=== PATIENT | female | born 1950 | race African-American/Black ===

== ENCOUNTER 2018-08-05 12:15 | Inpatient (IN) | payer MEDICARE, MEDICAID ==
[~2018-08-05] VITALS: Ht 167.6 cm; Wt 113.4 kg
[~2018-08-05 12:15] MED LIST: ASPIRIN; PAROXETINE; RISPERIDONE
[2018-08-05] MEDS ORDERED: LEVOFLOXACIN 500MG TABLET PO ONE (12:45)
[2018-08-05] MEDS ORDERED: IBUPROFEN 800MG TABLET PO ONE (12:45)
[2018-08-05] MEDS ORDERED: ASPIRIN 81MG TABLET PO ONE (13:30)
[2018-08-05 13:41] LABS: BASOPHILS % 0.5 % (0.0-2.0); EOSINOPHILS % 2.9 % (0.0-5.0); HEMATOCRIT. 39.8 % (36.0-48.0); HEMOGLOBIN. 13.3 g/dL (12.0-16.0); LYMPHOCYTES % 44.1 % (20.0-50.0); MEAN CORPUSCULAR HEMOGLOBIN 32.1 pg (28.0-32.0); MEAN PLATELET VOLUME 10.6 fl (7.4-10.4); MONOCYTES % 6.4 % (2.0-8.0); NEUTROPHILS % 46.1 % (40.0-76.0); PLATELET 211 x1000/uL (130-400); RED BLOOD CELL COUNT 4.15 mill/uL (4.2-5.4); RED CELL DISTRIBUTION WIDTH 14.3 % (11.6-14.6)
[2018-08-05 13:52] LABS: CHLORIDE 109 mEq/L (98-107)
[2018-08-05 13:55] LABS: PARTIAL THROMBOPLASTIN TIME 27.5 sec (23.4-31.0); PROTHROMBIN TIME 10.3 sec (9.1-11.1)
[2018-08-05 14:26] LABS: CLARITY URINE TURBID (CLEAR); COLOR URINE RED (YELLOW); KETONES URINE 1+ (NEGATIVE); LEUKOCYTE ESTERASE URINE 1+ (NEGATIVE); NITRITE URINE NEGATIVE (NEGATIVE); OCCULT BLOOD URINE 3+ (NEGATIVE); PROTEIN URINE 1+ (NEGATIVE); SPECIFIC GRAVITY URINE 1.015 (1.005-1.030)
[2018-08-05 14:39] LABS: *AMPHETAMINES SCREEN URINE NEGATIVE (NEGATIVE); *BARBITURATES SCREEN URINE NEGATIVE (NEGATIVE); *BENZODIAZEPINES SCREEN URINE NEGATIVE (NEGATIVE); *COCAINE SCREEN URINE NEGATIVE (NEGATIVE)
[2018-08-05 14:41] LABS: CANNABINOID URINE SCREEN NEGATIVE (NEGATIVE); METHADONE URINE SCREEN NEGATIVE (NEGATIVE); OPIATES URINE SCREEN NEGATIVE (NEGATIVE); PHENCYCLIDINE URINE SCREEN NEGATIVE (NEGATIVE)
[2018-08-05 16:00] VITALS: BP 121/61
[2018-08-05 17:37] VITALS: BP 110/62
[2018-08-05 18:00] VITALS: BP 121/61
[2018-08-05] MEDS ORDERED: CARV6.2548 MT (18:42)
[2018-08-05] MEDS ORDERED: ASPI-1158 MT (18:42)
[2018-08-05] MEDS ORDERED: LOSA50TA20 MT (18:42)
[2018-08-05] MEDS ORDERED: NITR0.4T SL (18:42)
[2018-08-05] MEDS ORDERED: PANT40TA4 MT (18:42)
[2018-08-05] MEDS ORDERED: ATOR40TA70 MT (18:42)
[2018-08-05] MEDS ORDERED: CLOP75TA16 MT (18:42)
[2018-08-05] MEDS ORDERED: NITROGLYCERIN 0.4MG TABLET SL SL PRN (19:45)
[2018-08-05 20:00] VITALS: BP 122/70
[2018-08-05] MEDS ORDERED: MORPHINE SULFATE 4 MG/ML CPJ (NOT FOR IM USE) IV PRN (20:18)
[2018-08-05] MEDS: CARVEDILOL 3.125 MG TABLET PO SCH (22:04)
[2018-08-05] MEDS: ATORVASTATIN CALCIUM 40MG TABLET PO SCH (22:05)
[2018-08-05] MEDS: CEFTRIAXONE 1 G PREMIX 50 ML IV SCH (22:05)
[2018-08-06] VITALS: BP 126/71
[2018-08-06] MEDS ORDERED: PAROXETINE HCL 10MG TABLET PO SCH ×2 (01:30→21:00)
[2018-08-06] MEDS ORDERED: RISPERIDONE 0.5MG TABLET PO SCH ×2 (01:30→21:00)
[2018-08-06 04:00] VITALS: BP 111/51
[2018-08-06 06:56] LABS: BASOPHILS % 0.5 % (0.0-2.0); EOSINOPHILS % 3.4 % (0.0-5.0); HEMATOCRIT. 39.1 % (36.0-48.0); HEMOGLOBIN. 12.9 g/dL (12.0-16.0); LYMPHOCYTES % 43.6 % (20.0-50.0); MEAN CORPUSCULAR HEMOGLOBIN 31.8 pg (28.0-32.0); MEAN PLATELET VOLUME 10.8 fl (7.4-10.4); MONOCYTES % 7.7 % (2.0-8.0); NEUTROPHILS % 44.8 % (40.0-76.0); PLATELET 193 x1000/uL (130-400); RED BLOOD CELL COUNT 4.07 mill/uL (4.2-5.4)
[2018-08-06] MEDS: PANTOPRAZOLE 40MG DR TABLET PO SCH (07:14)
[2018-08-06 07:16] LABS: CHLORIDE 109 mEq/L (98-107)
[2018-08-06 08:00] VITALS: BP 126/87
[2018-08-06] MEDS ORDERED: CLOPIDOGREL 75MG TABLET PO SCH (09:00)
[2018-08-06] MEDS: LOSARTAN POTASSIUM 50 MG TABLET PO SCH (09:08)
[2018-08-06] MEDS: ASPIRIN 81MG TABLET PO SCH (09:08)
[2018-08-06] MEDS: CARVEDILOL 3.125 MG TABLET PO SCH ×2 (09:09→21:57)
[2018-08-06 12:00] VITALS: BP 145/70
[2018-08-06 16:00] VITALS: BP 124/78
[2018-08-06 20:00] VITALS: BP 116/59
[2018-08-06] MEDS: ATORVASTATIN CALCIUM 40MG TABLET PO SCH (21:56)
[2018-08-06] MEDS: CEFTRIAXONE 1 G PREMIX 50 ML IV SCH (21:57)
[2018-08-07] VITALS: BP 155/71
[2018-08-07 04:00] VITALS: BP 116/48
[2018-08-07] MEDS: PANTOPRAZOLE 40MG DR TABLET PO SCH (06:20)
[2018-08-07 08:00] VITALS: BP 135/79
[2018-08-07] MEDS ORDERED: PANTOPRAZOLE SODIUM 40 MG/VIAL IV SCH (09:00)
[2018-08-07] MEDS: ASPIRIN 81MG TABLET PO SCH (10:33)
[2018-08-07] MEDS: CARVEDILOL 3.125 MG TABLET PO SCH (10:34)
[2018-08-07] MEDS: LOSARTAN POTASSIUM 50 MG TABLET PO SCH (10:34)
[2018-08-07 11:36] VITALS: BP 135/79
== END 2018-08-07 13:45 | disposition home or self-care (01) | DRG 690 ==
LOC: ER 13:30 → 5WST 13:43 → EDBEDREQTM 13:45 → EDBEDREQ 13:45 → ENRESERV 14:27
PROVIDERS: ADMIT Internal Medicine; ATTEND Internal Medicine
DX: N39.0 Urinary tract infection, site not specified (principal); I42.9 Cardiomyopathy, unspecified; E46 Unspecified protein-calorie malnutrition; Z68.41 Body mass index [BMI] 40.0-44.9, adult; R07.9 Chest pain, unspecified; R31.9 Hematuria, unspecified; B19.20 Unspecified viral hepatitis C without hepatic coma; F32.9 Major depressive disorder, single episode, unspecified; F41.9 Anxiety disorder, unspecified; E66.9 Obesity, unspecified; E78.5 Hyperlipidemia, unspecified; I10 Essential (primary) hypertension; J44.9 Chronic obstructive pulmonary disease, unspecified; K21.9 Gastro-esophageal reflux disease without esophagitis; Z60.2 Problems related to living alone; K74.60 Unspecified cirrhosis of liver; Z90.710 Acquired absence of both cervix and uterus; Z90.49 Acquired absence of other specified parts of digestive tract; I25.2 Old myocardial infarction; Z79.82 Long term (current) use of aspirin; Z79.899 Other long term (current) drug therapy; Z79.02 Long term (current) use of antithrombotics/antiplatelets; Z88.2 Allergy status to sulfonamides; Z88.6 Allergy status to analgesic agent; Z88.8 Allergy status to other drugs, medicaments and biological substances; Z91.041 Radiographic dye allergy status; Z91.013 Allergy to seafood
CPT/HCPCS: 36415; 71045; 76770; 80305; 83880; 84484; 93005; 93970; 99285; J0696; J7040

== ENCOUNTER 2019-06-06 12:21 | Emergency (ER) | payer MEDICARE, MEDICAID ==
[~2019-06-06] VITALS: Ht 175.3 cm; Wt 91.0 kg
[~2019-06-06 12:21] MED LIST changes: +ASPI-1158 MT; +ATOR40TA70 MT; +CARV6.2548 MT; +CLOP75TA4 MT; +LOSA50TA41 MT; +NITR0.4T SL; +PANT40TA4 MT
[2019-06-06] MEDS ORDERED: SODIUM CHLORIDE 0.9% 1,000 ML IV ONE (12:57)
[2019-06-06 13:31] LABS: BASOPHILS % 0.7 % (0.0-2.0); EOSINOPHILS % 2.7 % (0.0-5.0); HEMATOCRIT. 40.6 % (36.0-48.0); HEMOGLOBIN. 13.6 g/dL (12.0-16.0); LYMPHOCYTES % 35.2 % (20.0-50.0); MEAN CORPUSCULAR HEMOGLOBIN 32.5 pg (28.0-32.0); MEAN CORPUSCULAR VOLUME 97.1 fL (81.0-99.0); MEAN PLATELET VOLUME 10.7 fl (7.4-10.4); NEUTROPHILS % 57.4 % (40.0-76.0); PLATELET 209 x1000/uL (130-400); RED BLOOD CELL COUNT 4.19 mill/uL (4.2-5.4); RED CELL DISTRIBUTION WIDTH 14.2 % (11.6-14.6)
[2019-06-06 13:33] LABS: CHLORIDE 111 mEq/L (98-107)
[2019-06-06] MEDS ORDERED: LEVOFLOXACIN 750MG PREMIX 150 ML IV ONE (16:30)
[2019-06-06] MEDS ORDERED: METRONIDAZOLE 500 MG PREMIX 100 ML IV ONE (16:30)
[2019-06-06] MEDS ORDERED: HYDRALAZINE 20MG/ML VIAL IV PRN (17:15)
[2019-06-06] MEDS ORDERED: METRONIDAZOLE 500 MG PREMIX 100 ML IV SCH (17:15)
[2019-06-06] MEDS ORDERED: TRAMADOL 50MG TABLET PO PRN (17:15)
[2019-06-06] MEDS ORDERED: ONDANSETRON HCL 4MG/2ML INJ IV PRN (17:15)
[2019-06-06] MEDS ORDERED: LEVOFLOXACIN 500MG PREMIX 100 ML IV SCH (17:15)
[2019-06-06 18:58] VITALS: BP 166/88
[2019-06-06] MEDS ORDERED: ATORVASTATIN CALCIUM 40MG TABLET PO SCH (21:00)
[2019-06-06] MEDS ORDERED: CARVEDILOL 3.125 MG TABLET PO SCH (21:00)
[2019-06-07] MEDS ORDERED: LOSARTAN POTASSIUM 25 MG TABLET PO SCH (09:00)
[2019-06-07] MEDS ORDERED: ASPIRIN 81MG TABLET PO SCH (09:00)
== END 2019-06-06 18:58 | disposition left against medical advice (07) ==
LOC: ER 12:21 → EDBEDREQ 16:59 → ENRESERV 18:50 → CANRESERV 18:50 → ER 18:58 → CANBEDREQ 19:07
DX: R07.9 Chest pain, unspecified (principal); K57.92 Diverticulitis of intestine, part unspecified, without perforation or abscess without bleeding; J44.9 Chronic obstructive pulmonary disease, unspecified; I25.2 Old myocardial infarction; I11.9 Hypertensive heart disease without heart failure; Z88.2 Allergy status to sulfonamides; Z88.6 Allergy status to analgesic agent; Z88.8 Allergy status to other drugs, medicaments and biological substances; Z79.82 Long term (current) use of aspirin; Z90.49 Acquired absence of other specified parts of digestive tract; Z90.710 Acquired absence of both cervix and uterus
CPT/HCPCS: 36415; 71045; 74176; 80053; 83880; 84484; 85025; 93005; 96361; 96365; 96367; 99284; J1956; J3490; J7030

== ENCOUNTER 2020-06-16 12:55 | Inpatient (IN) | payer MEDICARE, MEDICAID ==
[~2020-06-16] VITALS: Ht 167.6 cm; Wt 95.3 kg
[~2020-06-16 12:55] MED LIST changes: -CLOP75TA4 MT; -PAROXETINE; +PAROXETINE PO; -RISPERIDONE; +RISPERIDONE PO
[2020-06-16] MEDS ORDERED: SODIUM CHLORIDE 0.9% 1,000 ML IV ONE (13:44)
[2020-06-16] MEDS ORDERED: KETOROLAC 30MG/ML VIAL IV STA (13:44)
[2020-06-16 14:04] LABS: BASOPHILS % 0.4 % (0.0-2.0); EOSINOPHILS % 2.9 % (0.0-5.0); HEMATOCRIT. 40.7 % (36.0-48.0); HEMOGLOBIN. 13.6 g/dL (12.0-16.0); MEAN CORPUSCULAR HEMOGLOBIN 32.1 pg (28.0-32.0); MEAN PLATELET VOLUME 10.2 fl (7.4-10.4); NEUTROPHILS % 49.7 % (40.0-76.0); PLATELET 223 x1000/uL (130-400); RED BLOOD CELL COUNT 4.24 mill/uL (4.2-5.4); RED CELL DISTRIBUTION WIDTH 14.2 % (11.6-14.6)
[2020-06-16 14:13] LABS: CHLORIDE 111 mEq/L (98-107)
[2020-06-16 14:14] LABS: PROTHROMBIN TIME 10.8 sec (9.6-11.0)
[2020-06-16] MEDS ORDERED: ASPIRIN 81MG TABLET PO ONE (14:30)
[2020-06-16 14:32] LABS: CLARITY URINE CLEAR (CLEAR); COLOR URINE YELLOW (YELLOW); KETONES URINE NEGATIVE (NEGATIVE); LEUKOCYTE ESTERASE URINE NEGATIVE (NEGATIVE); NITRITE URINE NEGATIVE (NEGATIVE); OCCULT BLOOD URINE NEGATIVE (NEGATIVE); PROTEIN URINE NEGATIVE (NEGATIVE); SPECIFIC GRAVITY URINE 1.026 (1.005-1.030)
[2020-06-16] MEDS ORDERED: PIPERACILLIN/TAZ 3.375G PREMIX 50 ML IV ONE (16:30)
[2020-06-16 20:00] VITALS: BP 129/63
[2020-06-16] MEDS ORDERED: LOPE2CAP MT (22:54)
[2020-06-16 23:00] VITALS: BP 129/63
[2020-06-16] MEDS ORDERED: ONDANSETRON HCL 4MG/2ML INJ IV PRN (23:15)
[2020-06-16] MEDS ORDERED: MORPHINE SULFATE 2 MG/ML CPJ (NOT FOR IM USE) IV PRN (23:15)
[2020-06-17] VITALS: BP 133/58
[2020-06-17] MEDS ORDERED: METRONIDAZOLE 500 MG PREMIX 100 ML IV SCH (01:00)
[2020-06-17] MEDS: LEVOFLOXACIN 500MG PREMIX 100 ML IV SCH (03:37)
[2020-06-17 04:00] VITALS: BP 133/66
[2020-06-17] MEDS: PANTOPRAZOLE 40MG DR TABLET PO SCH (06:24)
[2020-06-17 06:48] LABS: BASOPHILS % 0.6 % (0.0-2.0); HEMATOCRIT. 38.7 % (36.0-48.0); HEMOGLOBIN. 12.8 g/dL (12.0-16.0); LYMPHOCYTES % 43.8 % (20.0-50.0); MEAN CORPUSCULAR HEMOGLOBIN 31.8 pg (28.0-32.0); MEAN CORPUSCULAR VOLUME 95.9 fL (81.0-99.0); MEAN PLATELET VOLUME 10.2 fl (7.4-10.4); NEUTROPHILS % 44.6 % (40.0-76.0); PLATELET 217 x1000/uL (130-400); RED BLOOD CELL COUNT 4.04 mill/uL (4.2-5.4); RED CELL DISTRIBUTION WIDTH 14.2 % (11.6-14.6)
[2020-06-17 07:08] LABS: CHLORIDE 110 mEq/L (98-107)
[2020-06-17 08:00] VITALS: BP 106/44
[2020-06-17] MEDS: RISPERIDONE 1MG TABLET PO SCH ×2 (08:40→21:12)
[2020-06-17] MEDS: CARVEDILOL 6.25 MG TABLET PO SCH ×2 (08:40→21:00)
[2020-06-17] MEDS: ENOXAPARIN 30MG/0.3ML SYR SUBCUT SCH ×2 (08:42→21:13)
[2020-06-17] MEDS ORDERED: ENOXAPARIN 40MG/0.4ML SYR SUBCUT SCH (09:00)
[2020-06-17 12:00] VITALS: BP 134/65
[2020-06-17] MEDS ORDERED: VANCOMYCIN 750 MG PREMIX 150 ML IV SCH (13:00)
[2020-06-17] MEDS: VANCOMYCIN 1 G PREMIX 200 ML IV SCH (15:43)
[2020-06-17 16:00] VITALS: BP 118/63
[2020-06-17 20:00] VITALS: BP 125/63
[2020-06-17] MEDS ORDERED: ASPIRIN 81MG TABLET PO SCH (21:00)
[2020-06-17] MEDS ORDERED: ATORVASTATIN CALCIUM 40MG TABLET PO SCH (21:00)
[2020-06-17] MEDS ORDERED: PAROXETINE HCL 10MG TABLET PO SCH (21:00)
[2020-06-18] VITALS: BP 112/46
[2020-06-18] MEDS: LEVOFLOXACIN 500MG PREMIX 100 ML IV SCH (02:13)
[2020-06-18] MEDS: VANCOMYCIN 1 G PREMIX 200 ML IV SCH (02:13)
[2020-06-18 04:00] VITALS: BP 124/54
[2020-06-18] MEDS: PANTOPRAZOLE 40MG DR TABLET PO SCH (06:34)
[2020-06-18 07:23] LABS: CHLORIDE 108 mEq/L (98-107)
[2020-06-18 07:49] LABS: BASOPHILS % 0.4 % (0.0-2.0); EOSINOPHILS % 3.2 % (0.0-5.0); HEMATOCRIT. 38.8 % (36.0-48.0); HEMOGLOBIN. 12.9 g/dL (12.0-16.0); LYMPHOCYTES % 55.6 % (20.0-50.0); MEAN CORPUSCULAR HEMOGLOBIN 31.8 pg (28.0-32.0); MEAN CORPUSCULAR VOLUME 95.4 fL (81.0-99.0); MEAN PLATELET VOLUME 10.6 fl (7.4-10.4); MONOCYTES % 8.5 % (2.0-8.0); NEUTROPHILS % 32.3 % (40.0-76.0); PLATELET 207 x1000/uL (130-400); RED BLOOD CELL COUNT 4.07 mill/uL (4.2-5.4); RED CELL DISTRIBUTION WIDTH 13.9 % (11.6-14.6)
[2020-06-18 08:00] VITALS: BP 138/56
[2020-06-18] MEDS: CARVEDILOL 6.25 MG TABLET PO SCH (10:04)
[2020-06-18] MEDS: RISPERIDONE 1MG TABLET PO SCH (10:04)
[2020-06-18] MEDS: ENOXAPARIN 30MG/0.3ML SYR SUBCUT SCH (10:06)
[2020-06-18 12:00] VITALS: BP 148/68
[2020-06-18 12:03] LABS: HEPATITIS B SURFACE ANTIGEN NEGATIVE
[2020-06-18 12:32] LABS: HEPATITIS A AB IGM NEGATIVE (NEGATIVE)
[2020-06-18 15:20] VITALS: BP 148/68
[2020-06-18] MEDS ORDERED: VANCOMYCIN 1 G PREMIX 200 ML IV SCH (18:00)
[2020-06-19] MEDS ORDERED: FAMOTIDINE 20MG TABLET PO SCH (07:20)
== END 2020-06-18 15:30 | disposition home or self-care (01) | DRG 392 ==
LOC: ER 13:23 → 6EST 17:53 → ENRESERV 21:22
PROVIDERS: ADMIT Internal Medicine; ATTEND Internal Medicine
DX: K57.32 Diverticulitis of large intestine without perforation or abscess without bleeding (principal); E44.0 Moderate protein-calorie malnutrition; E87.8 Other disorders of electrolyte and fluid balance, not elsewhere classified; I25.2 Old myocardial infarction; E83.52 Hypercalcemia; K21.9 Gastro-esophageal reflux disease without esophagitis; E66.9 Obesity, unspecified; J44.9 Chronic obstructive pulmonary disease, unspecified; B19.20 Unspecified viral hepatitis C without hepatic coma; I10 Essential (primary) hypertension; I25.10 Atherosclerotic heart disease of native coronary artery without angina pectoris; Z90.49 Acquired absence of other specified parts of digestive tract; Z90.710 Acquired absence of both cervix and uterus; Z71.3 Dietary counseling and surveillance; Z88.0 Allergy status to penicillin; Z88.2 Allergy status to sulfonamides; Z68.33 Body mass index [BMI] 33.0-33.9, adult; Z88.8 Allergy status to other drugs, medicaments and biological substances; Z88.5 Allergy status to narcotic agent; Z88.6 Allergy status to analgesic agent; Z79.82 Long term (current) use of aspirin; Z79.899 Other long term (current) drug therapy
CPT/HCPCS: 36415; 74176; 80048; 80053; 81003; 85025; 86705; 86709; 86803; 87340; 96365; 99285; J1650; J1885; J1956; J2270; J2405; J2543; J3370; J3490; J7030